=== PATIENT | female | born 1965 | race Caucasian/White ===

== ENCOUNTER 2020-05-11 14:09 | Emergency (ER) | payer OTHER ==
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
[2020-05-11] MEDS: Ibuprofen 600 MG Tab PO ONE (15:17)
[2020-05-11] MEDS: Diphtheria,Pertussis(Acell),Tetanus Vaccine 0.5 ML SDV IM ONE (15:17)
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
[2020-05-11] MEDS: Bacitracin Oint 1 GM U/D Packet TOP ONE (16:16)
== END 2020-05-11 16:39 | disposition home or self-care (01) ==
LOC: JP.ED 14:09
DX: S20.219A Contusion of unspecified front wall of thorax, initial encounter (principal); S00.81XA Abrasion of other part of head, initial encounter; S80.211A Abrasion, right knee, initial encounter; S80.212A Abrasion, left knee, initial encounter; S50.311A Abrasion of right elbow, initial encounter; S50.312A Abrasion of left elbow, initial encounter; R68.84 Jaw pain; E03.9 Hypothyroidism, unspecified; Z88.2 Allergy status to sulfonamides; Z90.710 Acquired absence of both cervix and uterus; Z79.899 Other long term (current) drug therapy; W20.8XXA Other cause of strike by thrown, projected or falling object, initial encounter
CPT/HCPCS: 70110; 71046; 90471; 90715; 99285; A9270